=== PATIENT | male | born 1990 | race Hispanic/Latino ===

== ENCOUNTER 2017-09-20 22:51 | Emergency (ER) | payer SELFPAY | END 2017-09-20 23:31 | disposition home or self-care (01) | LOC: MADERS 22:51 | DX: S01.511A Laceration without foreign body of lip, initial encounter (principal); F17.210 Nicotine dependence, cigarettes, uncomplicated; W54.0XXA Bitten by dog, initial encounter | CPT/HCPCS: 99283 ==

== ENCOUNTER 2018-01-27 16:18 | Emergency (ER) | payer SELFPAY ==
[2018-01-27] MEDS ORDERED: ALPRAZolam 0.25 MG TAB ONE ×2 (17:06→18:56)
[2018-01-27 17:45] LABS: Red Blood Cell (RBC) Count 5.82 mill/uL (4.70-6.10); White Blood Cell (WBC) Count 4.2 thou/uL (4.8-10.8)
[2018-01-27 17:46] LABS: #Lymphocytes 1.8 thou/uL (1.20-3.40); #Monocytes 0.3 thou/uL (0.11-0.59); %Basophils 1.3 % (0.0-1.0); %Eosinophils 0.2 % (0.0-10.0); %Lymphocytes 42.9 % (21.0-51.0); %Monocytes 7.3 % (0.0-10.0); %Neutrophils 48.3 % (42.0-75.0); Hemoglobin 16.5 g/dL (14.0-18.0); Mean Corpuscular HGB CONC 33.6 g/dL (32.0-36.0); Mean Corpuscular Hemoglobin 28.3 pg (27.0-31.0); Mean Corpuscular Volume 84.3 fL (80.0-94.0); Platelet Count 302 thou/uL (130-400)
[2018-01-27 17:47] LABS: #Basophils 0.1 thou/uL (0.0-0.2)
[2018-01-27 17:56] LABS: ALT (SGPT) 24 U/L (8-55); AST (SGOT) 15 U/L (5-34); Alkaline Phosphatase 72 U/L (40-150); Anion Gap 20 mmol/L (10-20); BUN (Urea Nitrogen) 8 mg/dL (8.9-20.6); Bilirubin, Total 1.3 mg/dL (0.2-1.2); Calc. Creatinine Clearance 0 mL/min (70-130); Calcium 10.7 mg/dL (7.8-10.44); Carbon Dioxide 20 mmol/L (22-29); Chloride 103 mmol/L (98-107); Estimated GFR-MDRD 84; Globulin 3.2 g/dL (2.4-3.5); Glucose 99 mg/dL (70-105); Potassium 3.3 mmol/L (3.5-5.1); Protein, Total 8.2 g/dL (6.0-8.3); Sodium 140 mmol/L (136-145)
--- NOTE | 2018-01-27 18:04 | RAD ---
CHEST ONE VIEW: HISTORY: A 27-year-old male with a history of dyspnea. FINDINGS: Heart size is normal. Lungs are clear. IMPRESSION: 1. No active intrathoracic disease. 2. No pneumonia, edema, pleural effusion, or other acute process. POS: [facility]
== END 2018-01-27 19:25 | disposition home or self-care (01) ==
LOC: MADERS 16:18
DX: F41.9 Anxiety disorder, unspecified (principal); F17.210 Nicotine dependence, cigarettes, uncomplicated
CPT/HCPCS: 36415; 71045; 80053; 84443; 85025

== ENCOUNTER 2018-03-31 00:51 | Emergency (ER) | payer SELFPAY ==
[2018-03-31] MEDS ORDERED: Lorazepam 1 MG TAB ONE (01:05)
--- NOTE | 2018-03-31 08:19 | RAD ---
RADIOGRAPH CHEST 1 VIEW: HISTORY: 27-year-old male with dyspnea. FINDINGS: There are no air space densities, pulmonary edema, pneumothorax, or cardiomegaly. The lateral costop hrenic angles are sharp. IMPRESSION: No acute cardiopulmonary findings. destiny [] POS: [facility]
== END 2018-03-31 01:28 | disposition home or self-care (01) ==
LOC: MADERS 00:51
DX: F41.1 Generalized anxiety disorder (principal); F17.210 Nicotine dependence, cigarettes, uncomplicated
CPT/HCPCS: 71045